=== PATIENT | male | born 1985 | race Caucasian/White ===

== ENCOUNTER → 2017-03-21 | Outpatient (REF) ==
[~2017-03-21] MED LIST: NO HOME MEDICATIONS
== END ==
LOC: WSOH 12:52
DX: Z00.00 Encounter for general adult medical examination without abnormal findings (principal)

== ENCOUNTER 2020-02-10 11:33 | Emergency (ER) | payer BC ==
[~2020-02-10] VITALS: Ht 180.3 cm; Wt 93.2 kg
[2020-02-10 11:51] VITALS: TEMP 97.5
[2020-02-10] MEDS ORDERED: ANTIDEPRESSANT (13:54)
[2020-02-10 13:55] LABS: COLLECTION METHOD CLEAN CATCH
[2020-02-10 14:04] LABS: HEMATOCRIT 44.8 % (42.0-52.0); HEMOGLOBIN 15.6 g/dl (13.5-18.0); MEAN CELL VOLUME 88 fl (80.0-100.0); MEAN CORPUSCULAR HEMOGLOBIN 31 pg (27.0-31.0); MEAN CORPUSCULAR HGB CONC 35 g/dl (33.0-37.0); MEAN PLATELET VOLUME 10.8 fl (7.4-10.4); PLATELET COUNT 217 K/mm3 (130-400); REDCELL DISTRIBUTION WIDTH-CV 11.6 % (11.5-14.5)
[2020-02-10 14:14] LABS: PH 6 (5-8); SQUAMOUS EPITHELIAL None Seen /hpf; URINE APPEARANCE Clear; URINE BACTERIA None Seen /hpf; URINE BILIRUBIN Negative (NEGATIVE); URINE BLOOD Negative (NEGATIVE); URINE COLOR Colorless; URINE GLUCOSE 3+ (NEGATIVE); URINE KETONE Negative (NEGATIVE); URINE LEUKOCYTE ESTERASE Negative (NEGATIVE); URINE NITRATE Negative (NEGATIVE); URINE PROTEIN(semi-quant) Negative (NEGATIVE); URINE RBC None Seen /hpf; URINE UROBILINOGEN Negative (NEGATIVE)
[2020-02-10 14:15] LABS: ALANINE AMINOTRANSFERASE 76 U/L (4-49); ALBUMIN 4.7 gm/dL (3.5-5.0); ALKALINE PHOSPHATASE 79 U/L (50-136); ANION GAP 10 mmol/L (7-16); AST,SGOT 35 U/L (15-37); BILIRUBIN,TOTAL 0.6 mg/dL (0.0-1.0); BLOOD UREA NITROGEN 13 mg/dL (9-20); CALCIUM 9.6 mg/dL (8.4-10.2); CARBON DIOXIDE 27 mmol/L (22-30); CHLORIDE 96 mmol/L (98-107); CREATININE, serum 0.75 (0.66-1.25); GLUCOSE 338 mg/dL (74-106); MAGNESIUM 2.2 mg/dL (1.6-2.3); POTASSIUM 4.3 mmol/L (3.4-5.0); SODIUM 133 mmol/L (137-145); TOTAL PROTEIN 8.6 gm/dL (6.4-8.2)
[2020-02-10 14:17] LABS: ACETONE,SERUM NEGATIVE
[2020-02-10 14:22] LABS: EOSINOPHIL 1 % (0-4); LYMPHOCYTE 29 % (20.0-51.0); MYELOCYTE 3 % (0-0); NEUTROPHILS 59 % (42.0-75.2); PLATELET ESTIMATE NORMAL (NORMAL)
[2020-02-10 14:23] LABS: STOMATOCYTE 1+
[2020-02-10] MEDS ORDERED: GLUCOPHAGE500 MG/TAB PO (15:01)
[2020-02-10] MEDS ORDERED: GLUCOSE TEST ST1 DEV MC (15:03)
[2020-02-10] MEDS ORDERED: FREESTYLE PREC1 EAC5 MC (15:03)
[2020-02-10 16:15] VITALS: BP 125/62; PULSE 68
== END 2020-02-10 16:15 | disposition home or self-care (01) ==
LOC: COL.ER 11:33
PROVIDERS: Emergency Medicine
DX: E11.9 Type 2 diabetes mellitus without complications (principal)
CPT/HCPCS: J7030